=== PATIENT | male | born 1960 | race Caucasian/White ===

== ENCOUNTER 2021-08-22 08:28 | Emergency (ER) | payer BC ==
--- NOTE | 2021-08-22 09:23 | ED Physician Documentation ---
PD HPI HEENT - Stated complaint Stated Complaint: SINUS PX - Chief complaint Chief Complaint: Heent - History obtained from History obtained from: Patient - History of Present Illness Timing - onset: How many months ago (2) Timing - duration: Months (2) Timing - details: Gradual onset, Still present, Waxing and waning Location: Nose Improves: Medication Associated symptoms: Congestion, Rhinorrhea. No: Fever Similar symptoms before: Diagnosis (sinusitis) Recently seen: Clinic - Additional information Additional information: 60-year-old retired Duc Nunez has developed nasal congestion without a cough and he has developed yellow and green phlegm from his nose. He is got into see the urgent care and was placed on a course of Augmentin about 1 month ago. He said this made very little difference. When I queried the patient about other medications he indicated that he has been using Afrin for about a month before he went into see the people at the walk-in clinic. He is relying on this medicine every day and cannot breathe without it. The patient admits to drinking 6 IPAs per day and does not bulk when I confronted him that this more likely 12. He is interested in alcohol cessation action. Review of Systems Constitutional: denies: Fever Eyes: denies: Decreased vision Ears: denies: Ear pain Nose: reports: Rhinorrhea / runny nose, Congestion, Sinus pressure / pain Throat: denies: Sore throat Cardiac: denies: Chest pain / pressure, Palpitations Respiratory: denies: Dyspnea, Cough GI: denies: Abdominal Pain, Nausea, Vomiting, Constipation, Diarrhea : denies: Dysuria, Frequency PD PAST MEDICAL HISTORY - Past Medical History Past Medical History: Yes Cardiovascular: Hypertension Respiratory: None Neuro: None Endocrine/Autoimmune: None GI: None : None HEENT: None Psych: None Musculoskeletal: None Derm: None - Past Surgical History Past Surgical History: No Ortho: Other - Present Medications Home Medications: Ambulatory Orders Medication Instructions Recorded Confirmed Azithromycin [Zithromax] 250 mg PO DAILY #6 tablet 08/22/21 - Allergies Allergies/Adverse Reactions: Allergies Allergy/AdvReac Type Severity Reaction Status Date / Time No Known Drug Allergies Allergy Verified 08/22/21 08:34 - Social History Does the pt smoke?: Yes Smoking Status: Current every day smoker Does the pt drink ETOH?: Yes ETOH Use: Beer Does the pt have substance abuse?: No - Immunizations Immunizations are current?: No Immunizations: Other immun not current - POLST Patient has POLST: No PD ED PE NORMAL - Vitals Vital signs reviewed: Yes (Hypertensive and tachycardic.) - General General: Alert and oriented X 3, Well developed/nourished, Other (60-year-old male showing signs of alcohol withdrawal with a tremor.) - HEENT HEENT: Atraumatic, PERRL, EOMI, Ears normal, Moist mucous membranes, Pharynx benign, Dentition benign, Other (No maxillary or frontal sinus point tenderness there is some tenderness over the nasal bridge.) - Neck Neck: Supple, no meningeal sign, No bony TTP - Cardiac Cardiac: RRR, No murmur - Respiratory Respiratory: No respiratory distress, Other (Diminished breath sounds) - Abdomen Abdomen: Soft, Non tender - Back Back: No CVA TTP, No spinal TTP - Derm Derm: Normal color, Warm and dry, No rash - Extremities Extremities: No deformity, No edema - Neuro Neuro: Alert and oriented X 3, cpht 2-12 intact, No motor deficit, No sensory deficit, Normal speech Eye Opening: Spontaneous Motor: Obeys Commands Verbal: Oriented GCS Score: 15 - Psych Psych: Normal mood, Normal affect Results - Vitals Vitals: Vital Signs - 24 hr 08/22/21 08/22/21 08:35 09:51 Temperature 37.2 C Heart Rate 104 H 80 Respiratory 16 18 Rate Blood Pressure 182/112 H 135/99 H O2 Saturation 97 99 Oxygen O2 Source Room air PD MEDICAL DECISION MAKING - ED course Complexity details: reviewed old records, considered differential, d/w patient ED course: 60-year-old male with rhinitis medicamentosa and alcoholism. He is interested in alcohol withdrawal and medication for withdrawal. I was able to explain to the patient the nature of alcohol withdrawal and the expected outcome of use of Librium. He is still interested in attempting alcohol withdrawal. In addition I discussed with the patient rhinitis medicamentosa and its effects and solution. I have recommended to the patient that he use Nasacort on a regular b asis until his symptoms are resolved and he does have some indication of infection and we will use azithromycin as a clean up antibiotic. Departure - Departure Disposition: 01 Home, Self Care Clinical Impression: Rhinitis medicamentosa, Sinusitis chronic, ethmoidal Alcohol withdrawal Qualifiers: Complication of substance-induced condition: uncomplicated Qualified Code(s): F10.230 - Alcohol dependence with withdrawal, uncomplicated Condition: Stable Instructions: Nasal [place] Steps, ED Withdrawal Alcohol, ED Sinusitis Abx Tx Follow-Up: Elis Ocasio ARNP [Physician No Access] - Prescriptions: chlordiazePOXIDE [Librium] 25 mg PO Q6H #15 cap Azithromycin [Zithromax] 250 mg PO DAILY #6 tablet Comments: Duc, today it looks like you have 2 things we are treating. As far as your nose is concerned it looks like you have a problem with the Afrin itself. My recommendation is to discontinue the use of the Afrin and use an [id number] nasal spray called Nasacort. Use this medicine 2 sprays twice per day for the first 2 to 3 days and following that once per day. What ought to happen with this is that it gets easier for you to breathe through your nose on a regular basis. There is some evidence of infection I have prescribed an antibiotic azithromycin which should help clean up the infection. As far as your alcohol withdrawal I have E scribed some Librium in a formulated to taper to [facility] in [address]. This medication is sedating and you will not be able to drive or operate machinery after you have taken it. The recommendation is to abstain from alcohol completely and you may need a fair amount of this medication on the first day to combat your symptoms. The recomm endation is to take the taper as scheduled and avoid alcohol completely. I have provided a follow-up clinic number in [address]. Today your blood pressure was elevated, this is likely due to the alcohol withdrawal itself. After you have gone through the withdrawal and have fixed your nose a follow-up for blood pressure check is recommended. Discharge Date/Time: 08/22/21 09:52
[2021-08-22 09:52] VITALS: BP 135/99
== END 2021-08-22 09:52 | disposition home or self-care (01) ==
LOC: ED 08:28
DX: J31.0 Chronic rhinitis (principal); J32.2 Chronic ethmoidal sinusitis; F10.230 Alcohol dependence with withdrawal, uncomplicated; F17.200 Nicotine dependence, unspecified, uncomplicated
CPT/HCPCS: 99282; 99284

== ENCOUNTER 2021-09-01 15:12 | Outpatient (CLI) | payer BC ==
[2021-09-01 20:17] LABS: BASOPHILS # (AUTO) 0.1 10^3/uL (0.0-0.1); BASOPHILS % (AUTO) 1.5 %; EOSINOPHILS # (AUTO) 0.2 10^3/uL (0.0-0.7); EOSINOPHILS % (AUTO) 3.4 %; HCT - HEMATOCRIT 38.8 % (42.0-52.0); HGB - HEMOGLOBIN 12.6 g/dL (14.0-18.0); LYMPHOCYTES # (AUTO) 1.4 10^3/uL (1.5-3.5); LYMPHOCYTES % (AUTO) 19.1 %; MEAN CORPUSCULAR HGB CONC 32.5 g/dL (32.0-36.0); MEAN CORPUSCULAR VOLUME 104.6 fL (80.0-94.0); MEAN PLATELET VOLUME 10.4 fL (7.4-11.4); MONOCYTES % (AUTO) 13.5 %; NEUTROPHILS # (AUTO) 4.4 10^3/uL (1.5-6.6); NEUTROPHILS % (AUTO) 62.1 %; PLT - PLATELET COUNT 401 10^3/uL (130-450); RED BLOOD COUNT 3.71 10^6/uL (4.70-6.10); RED CELL DISTRIBUTION WIDTH 12.9 % (12.0-15.0); WHITE BLOOD COUNT 7.1 x10^3/uL (4.8-10.8)
[2021-09-01 20:21] LABS: ALBUMIN 3.5 g/dL (3.2-5.5); ALKALINE PHOSPHATASE 43 IU/L (42-121); ALT ALANINE AMINOTRANSFERASE 31 IU/L (10-60); AST ASPARTATE AMINOTRANSFERASE 56 IU/L (10-42); BILIRUBIN,TOTAL 0.6 mg/dL (0.2-1.0); BUN - BLOOD UREA NITROGEN 11 mg/dL (6-20); CALCIUM 9.4 mg/dL (8.5-10.3); CARBON DIOXIDE - CO2 26 mmol/L (21-32); CHLORIDE 100 mmol/L (101-111); CHOL/HDL RATIO 3.4 (<5.0); CHOLESTEROL 205 mg/dL; CREATININE 0.8 mg/dL (0.6-1.2); CRP HIGH SENSITIVITY 0.8 mg/L; GFR - MDRD 99 (>89); GLUCOSE 82 mg/dL (70-100); HDL CHOLESTEROL 61 mg/dL; LDL CHOLESTEROL,CALCULATED 92 mg/dL; LDL/HDL RATIO 1.5 (<3.6); POTASSIUM 4.7 mmol/L (3.5-5.0); SODIUM 138 mmol/L (135-145); TOTAL PROTEIN 7.1 g/dL (6.7-8.2); TRIGLYCERIDES 262 mg/dL; VLDL CHOLESTEROL 52 mg/dL
[2021-09-01 20:35] LABS: ESTIMATED AVERAGE GLUCOSE 108 mg/dL (70-100); HEMOGLOBIN A1c% 5.4 % (4.27-6.07)
[2021-09-01 23:53] LABS: CHLAMYDIA TRACHOMATIS DNA NEGATIVE (NEGATIVE); NEISSERIA GONORRHOEAE DNA NEGATIVE (NEGATIVE)
[2021-09-03 05:12] LABS: HCV AB 0.2 s/co ratio (0.0-0.9); HIV SCREEN 4TH GENERATION Non Reactive (Non Reactive); RPR Non Reactive (Non Reactive)
== END 2021-09-01 15:13 | disposition home or self-care (01) ==
LOC: LAB.S 15:12
PROVIDERS: ATTEND Nurse Practitioner Family
DX: I10 Essential (primary) hypertension (principal); R63.4 Abnormal weight loss; Z13.1 Encounter for screening for diabetes mellitus; Z11.59 Encounter for screening for other viral diseases; Z11.3 Encounter for screening for infections with a predominantly sexual mode of transmission; Z13.220 Encounter for screening for lipoid disorders
CPT/HCPCS: 36415; 80053; 80061; 81599; 83036; 83721; 84153; 84443; 85025; 85651; 86141; 86480; 86592; 86803; 87389; 87491; 87591; 87661